=== PATIENT | female | born 1975 | race American Indian/Alaskan Native ===

== ENCOUNTER 2016-12-02 17:05 | Emergency (ER) | payer MEDICARE ==
[2016-12-02] MEDS ORDERED: TYLENOL #3 PO ONE (22:11)
--- NOTE | 2016-12-02 22:13 | Emergency Department Report ---
HPI - General Chief Complaint: Extremity Injury, Lower Time Seen by Provider: 12/02/16 22:04 - HPI HPI: 41-year-old female presents to ED complaining of left foot pain status post injury yesterday afternoon. Patient states she was lifting a heavy printed type fax machine and it fell and hit her on her left foot. Patient states she iced it and kept it elevated since yesterday but her pain has gotten worse. She states pain as throbbing in nature localized to the left foot. Patient states pain is worsened with weightbearing. Patient denies fevers/chills/nausea/vomiting/abdominal pain/chest pain/S of breath or any other problems. ED Past Medical Hx - Past Medical History Previous Medical History?: Yes Hx Diabetes: Yes Hx Psychiatric Treatment: Yes (bipolar, schizophrenia) Additional medical history: metabolic disorder, depression, low b/p - Surgical History Past Surgical History?: Yes Hx Cholecystectomy: Yes Additional Surgical History: Gastric bypass, hysterectomy - Social History Smoking Status: Current Every Day Smoker Substance Use Type: Alcohol, Marijuana, Prescribed - Medications Home Medications: Home Medications Medication Instructions Recorded Confirmed Last Taken Type Acetaminophen/Codeine 1 tab PO Q6H #14 tablet 12/02/16 Unknown Rx [Acetaminophen-Codeine #3 TAB] Cyclobenzaprine [Flexeril] 10 mg PO TID PRN #20 tablet 12/02/16 Unknown Rx Ibuprofen [Motrin] 800 mg PO Q8HR PRN #30 tablet 12/02/16 Unknown Rx ED Review of Systems ROS: Stated complaint: LFT FOOT INJURY Other details as noted in HPI Constitutional: denies: chills, fever Eyes: denies: eye pain, eye discharge, vision change ENT: denies: ear pain, throat pain Respiratory: denies: cough, shortness of breath, wheezing Cardiovascular: denies: chest pain, palpitations Endocrine: no symptoms reported Gastrointestinal: denies: abdominal pain, nausea, vomiting, diarrhea, constipation, melena Genitourinary: denies: urgency, dysuria, frequency, hematuria, discharge Musculoskeletal: denies: back pain, joint swelling, arthralgia Skin: denies: rash, lesions, pruritus Neurological: denies: headache, weakness, numbness, paresthesias, confusion Psychiatric: denies: anxiety, depression Hematological/Lymphatic: denies: easy bleeding, easy bruising Physical Exam - Physical Exam Vital Signs: Vital Signs 12/02/16 17:26 Temperature 98.1 F Pulse Rate 72 Respiratory 16 Rate Blood Pressure 101/58 O2 Sat by Pulse 100 Oximetry Physical Exam: GENERAL: Alert and oriented x3, no apparent distress, Normal Gait, atraumatic. HEAD: Head is normocephalic and a-traumatic. EYES: Extra ocular muscles are intact. Pupils are equal, round, and reactive to light and accommodation. NOSE: Nose symetrical, Nontender,Nares appeared normal. MOUTH:Mouth is well hydrated and without lesions. NECK: Supple. Non edematous, No carotid bruits. No lymphadenopathy or thyromegaly. LUNGS: Symetrical with respiration, No wheezing, no rales or crackles, CTAB. HEART: S1, S2 present, regular rate and rhythm without murmur, no rubs, no gallops. ABDOMEN: No organomegaly was noted,Positive bowel sounds, soft, and non- distended. . Nontender to palpation on all Quadrants, NO CVA tenderness. EXTREMITIES/MUSCULOSKELETAL: No cyanosis, clubbing, rash, lesions or edema. Full ROM bilaterally. LE Pulses 2+ bilaterally. LE and UE 5+ strength bilaterally. Left anterior foot ecchymoses, mildly's Hernandez. Tenderness to palpation of anterior foot. Patient was being very difficult during examination of foot. She would not stay still and kept yelling for pain medication NEUROLOGIC: No focal Deficit, Cranial nerves II through XII are grossly intact. No loss of sensation, PSYCHIATRIC: Mood is congruent with affect, denies suicidal or homicidal ideations. SKIN: Warm and dry, No lesions, No ulceration or induration present. ED Course Vital Signs 12/02/16 17:26 Temperature 98.1 F Pulse Rate 72 Respiratory 16 Rate Blood Pressure 101/58 O2 Sat by Pulse 100 Oximetry ED Medical Decision Making - Radiology Data Radiology results: report reviewed, image reviewed FINAL REPORT EXAM: XR FOOT 3 LT HISTORY: left foot injury with heavy object COMPARISON: None available. FINDINGS: Three views of the left foot obtained. Transverse fracture through the proximal body of the 3rd proximal phalanx. Joint spaces are preserved. No other fracture. IMPRESSION: Posttraumatic 3rd proximal phalanx fracture. Transcribed By: LMA Dictated By: PILO HODGES MD Electronically Authenticated By: PILO HODGES MD Signed Date/Time: 12/03/16 0335 - Medical Decision Making 41-year-old female presents with foot sprain secondary to injury ED course: Patient received 2 tablets of Tylenol 3. X-ray of the foot ordered. X-ray shows transverse nondisplaced fracture of the third metatarsal bone. See above Discussed findings with patient. Discussed patient with follow-up with primary care physician. Discussed to take medication as prescribed. Discussed with patient to follow-up with orthopedic referrals as given. Patient's toe was jada taped and put in a postop shoe. Patient was discharged home on pain medications. Vital signs are stable. Patient is in no acute distress Critical care attestation.: If time is entered above; I have spent that time in minutes in the direct care of this critically ill patient, excluding procedure time. ED Disposition Clinical Impression: Fracture of third metatarsal bone of left foot Qualifiers: Encounter type: initial encounter Fracture type: closed Fracture alignment: nondisplaced Qualified Code(s): S92.335A - Nondisplaced fracture of third metatarsal bone, left foot, initial encounter for closed fracture Disposition: DISCHARGED TO HOME OR SELFCARE Is pt being admited?: No Does the pt Need Aspirin: No Condition: Stable Instructions: Toe Fracture (ED), Arthralgia (ED), RICE Therapy (ED) Prescriptions: Acetaminophen/Codeine [Acetaminophen-Codeine #3 TAB] 1 tab PO Q6H #14 tablet Cyclobenzaprine [Flexeril] 10 mg PO TID PRN #20 tablet PRN Reason: Muscle Spasm Ibuprofen [Motrin] 800 mg PO Q8HR PRN #30 tablet PRN Reason: Pain Referrals: PRIMARY MD RICARDO [Primary Care Provider] - 3-5 Days GRACE BROWN MD [Staff Physician] - 3-5 Days BROCK KEN MD [Staff Physician] - 3-5 Days GWENDOLYN ANDRADE MD [Referring] - 3-5 Days ALESHA SURESH MD [Referring] - 3-5 Days Forms: Accompanied Note, Work/School Release Form Time of Disposition: 23:24
[2016-12-03 00:10] VITALS: BP 110/62
--- NOTE | 2016-12-03 03:39 | XRay Report ---
FINAL REPORT EXAM: XR FOOT 3 LT HISTORY: left foot injury with heavy object COMPARISON: None available. FINDINGS: Three views of the left foot obtained. Transverse fracture through the proximal body of the 3rd proximal phalanx. Joint spaces are preserved. No other fracture. IMPRESSION: Posttraumatic 3rd proximal phalanx fracture.
== END 2016-12-03 00:01 | disposition home or self-care (01) ==
LOC: ED 17:05
DX: S92.335A Nondisplaced fracture of third metatarsal bone, left foot, initial encounter for closed fracture (principal); E11.9 Type 2 diabetes mellitus without complications; F12.10 Cannabis abuse, uncomplicated; F17.200 Nicotine dependence, unspecified, uncomplicated; W22.8XXA Striking against or struck by other objects, initial encounter; Y93.9 Activity, unspecified; Y92.89 Other specified places as the place of occurrence of the external cause; Y99.9 Unspecified external cause status
CPT/HCPCS: 99284